=== PATIENT | male | born 1990 | race Caucasian/White ===

== ENCOUNTER 2025-06-06 18:48 | Emergency (ER) | payer OTHER, SELFPAY ==
[2025-06-06 18:57] VITALS: BP 121/74; PULSE 88; RESP 16; TEMP 36.6; O2SAT 98; BMI 23.0
--- NOTE | 2025-06-06 20:52 | PC.NURSE ---
Placed finger in sterile water/chlorhexadine solution for soaking
[2025-06-06] MEDS: TET,DIPH,PERTUSS(ACELL),VAC/PF 0.5 ML SYRINGE IM (21:10)
--- NOTE | 2025-06-06 21:15 | ED_ITS ---
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 Patient is not neurovascular compromised. No other complaints. Unsure about tetanus status. Related Data Home Medications ?Medication ?Instructions ?Recorded ?Confirmed dextroamphetamine sulfate 10 mg 5 - 10 mg PO DAILY 07/0205/22/25 tablet lisdexamfetamine 50 mg capsule 50 mg PO QAM 11/16/24 1 Allergies Allergy/AdvReac Type Severity Reaction Status Date / Time No Known Drug Allergies Allergy Verified 05/22/25 09:10 Review of Systems Review of Systems ROS Unobtainable: All systems reviewed & are unremarkable except as noted in HPI and below Patient History Smoking Status: Never smoker Exam Narrative Exam Narrative: General: Patient appears to be in no acute distress, acting appropriately Head: normocephalic, atraumatic, HEENT: Pupils equal round reactive, eyes tracking well, neck supple, no JVD Heart: regular rate and rhythm, no murmurs, rubs, or gallops heard Lungs: clear to auscultation, no adventitious sounds Abdomen: soft , nontender, nondistended, positive bowel sounds Neurological: no focal neurological signs, moving all extremities well, alert and oriented x3, Psych: good judgment ,good insight, mood is normal. rigth middle finger: tip of finger on dorsum side has 2 cm laceration Initial Vital Signs Initial Vital Signs: Vital Signs Temperature 97.9 F 06/06/25 18:57 Pulse Rate 88 06/06/25 18:57 Respiratory Rate 16 06/06/25 18:57 Blood Pressure 121/74 06/06/25 18:57 Pulse Oximetry 98 06/06/25 18:57 Oxygen Delivery Method Room Air 06/06/25 18:57 Procedures Laceration Repair Laceration 1: Time of procedure: 21:19 Site: hand (right middle finger ) Side (If applicable): right Size (cm): 2 Description: linear Depth: simple, single layer Local Anesthetic: lidocaine 2% and bupivacaine 0.5% Amount of anesthesia used (mL): 6 Skin layer closed with: nylon Skin layer suture size: 5-0 Number of sutures: 4 Technique: simple, interrupted Course Orders Ordered: Discontinued Medications Bacitracin (Bacitracin Oint 0.9 Gm Pckt) 1 applic TOP NOW ONE Stop: 06/06/25 20:56 Diphtheria/Tetanus/Acell Pertussis (Tet,Diph,Pertuss(Acell),Vac/Pf 0.5 Ml Syringe) 0.5 ml IM .ONCE ONE Stop: 06/06/25 20:56 Last Admin: 06/06/25 21:10 Dose: 0.5 ml Documented By: BOGDAN Vital Signs Vital signs: Vital Signs - 8 hr 06/06/25 18:57 Temperature 97.9 F Pulse Rate 88 Respiratory Rate 16 Blood Pressure 121/74 Pulse Oximetry 98 Oxygen Delivery Method Room Air MDM - Wound/Laceration MDM Narrative Medical decision making narrative: 35-year-old male with a laceration over his right middle finger on the dorsum side. Patient repaired with 4 simple interrupted sutures. Patient also given a tetanus shot. Patient tolerated procedure with no complications. Less than 1 mL blood loss. Follow up with any signs of infection. Follow up in 1 week for suture removal. Discharge Plan Departure Patient Disposition: Home Clinical Impression: Laceration Instructions: DI for Laceration Repair Activity Restrictions/Additional Instructions: Do not wet the area for 24 hours. Afterwards can shower as normal. Follow up with PCP in 1 week for suture removal. Come back sooner for any signs of infection including redness warmth oozing. Prescriptions: No Action lisdexamfetamine 50 mg capsule 50 mg PO QAM dextroamphetamine sulfate 10 mg tablet 5 - 10 mg PO DAILY Referrals: Rachel Camargo DO [Primary Care Provider, [facility]] Stand Alone Forms: Patient Portal/API
[2025-06-06] MEDS: BACITRACIN OINT 0.9 GM PCKT 1 APPLIC TOP (21:30)
== END 2025-06-06 21:32 | disposition home or self-care (01) ==
PROVIDERS: Emergency Provider Family Medicine; PCP Family Medicine
DX: S61.212A Laceration without foreign body of right middle finger without damage to nail, initial encounter (principal); W26.9XXA Contact with unspecified sharp object(s), initial encounter; Z23 Encounter for immunization
CPT/HCPCS: 12001; 90471; 99283; 90715

== ENCOUNTER → 2025-07-24 13:05 | Outpatient (CLI) | payer OTHER, SELFPAY ==
[2025-07-24 14:58] LABS: Influenza A - CEPHEID Flu A NEGATIVE (NEGATIVE); Influenza B - CEPHEID Flu B NEGATIVE (NEGATIVE)
[2025-07-24 15:08] LABS: COVID-19 CEPHEID 4-PLEX PCR Negative (Negative)
== END ==
LOC: LAB 13:06
PROVIDERS: PCP Family Medicine; Visit Provider Family Medicine
DX: J02.9 Acute pharyngitis, unspecified (principal); R05.9 Cough, unspecified; R09.81 Nasal congestion
CPT/HCPCS: 87637